=== PATIENT | female | born 1975 | race Caucasian/White ===

== ENCOUNTER → 2019-03-03 12:59 | Outpatient (CLI) | payer MEDICARE, MEDICAID, SELFPAY ==
--- NOTE | 2019-03-03 | DI.ECHO.S_ITS ---
[facility]---------+ [facility] +---------+ : : [address] : [address] : : : : [id number] : : : : Phone: [phone]+ Echocardiogram Report + + :Name: JOSE SETH Study Date: 03/03/2019 Height: 63 in : :[facility] Weight: 141 lb : : Gender: Female BSA: 1.7 m2 : :: 1975 Age: 43 yrs BP: 122/82 mmHg: :Reason For Study: CAD : : Performed By: [facility] Staff : :Referring: MARK JARQUNI : + + Interpretation Summary Left ventricular systolic function is mildly reduced with the ejection fraction is estimated to be 40-45% with severe hypokinesis of the inferior and inferoposterior wall, extending into the distal inferior septum. There is mild concentric left ventricular hypertrophy. The right ventricle is normal in size and function. Pulmonary artery pressures cannot be estimated because of the lack of a measurable TR jet velocity but the IVC suggests a CVP of around 3 mmHg. The left atrium is borderline dilated. There is no significant valvular heart disease. Procedure: A two-dimensional transthoracic echocardiogram with color flow and Doppler was performed. The study quality was technically adequate. A contrast injection of Definity was performed to improve assessment of LV function. There is no prior echocardiogram noted for this patient. The patient was in normal sinus rhythm during the exam. Left Ventricle: The left ventricle is normal in size. There is mild concentric left ventricular hypertrophy. Left ventricular systolic function is mildly reduced. The ejection fraction is estimated to be 40-45%. There is severe hypokinesis of the inferior and inferoposterior wall, extending into the distal inferior septum. Diastolic function could not be accurately assessed due to contradictory data. Right Ventricle: The right ventricle is normal in size and function. Atria: The left atrium is borderline dilated. Right atrial size is normal. The interatrial septum is intact with no evidence for an atrial septal defect. Mitral Valve: The mitral valve leaflets appear mildly thickened, but open well. There is trace mitral regurgitation. Aortic Valve: The aortic valve is trileaflet. The aortic valve is slightly calcified. The aortic valve opens well. There is trace aortic regurgitation. Tricuspid Valve: The tricuspid valve is normal in structure and function. There is trace tricuspid regurgitation. Pulmonary artery pressures cannot be estimated because of the lack of a measurable TR jet velocity but the IVC suggests a CVP of around 3 mmHg. Pulmonic Valve: The pulmonic valve is not well visualized. There is trace pulmonic regurgitation. There is no significant valvular heart disease. Great Vessels: The aortic root is normal size. The dimensions of the ascending aorta are normal. The pulmonary artery is normal size. The IVC is of normal diameter and collapses greater than 50% with a sniff. This suggests a low right atrial pressure of 3 mm Hg. Pericardium/ Pleura There is no pericardial effusion. There is no pleural effusion. MMode/2D Measurements & Calculations LVIDd: 4.9 cm LVOT diam: 2.0 cm LVIDs: 4.1 cm Ao root diam: 2.5 cm FS: 17.5 % Aortic Jxn: 2.2 cm EPSS: 1.5 cm IVSd: 1.2 cm LVPWd: 1.2 cm LV fay. diameter/BSA (cm/m^2): 2.9 LV sys. diameter/BSA (cm/m^2): 2.4 LA A2 area: 15.2 cm2 RA long axis: 3.5 cm LA A4 area: 19.8 cm2 RA area: 9.6 cm2 LA length (vol): 4.6 cm RA vol: 22.2 ml LA vol: 56.2 ml RA : 13.3 ml/m2 LA vol index: 33.7 ml/m2 TAPSE: 2.0 cm Doppler Measurements & Calculations Ao V2 max: 152.3 cm/sec LVOT Max Rishi: 96.1 cm/sec Ao V2 mean: 108.2 cm/sec LV V1 max P.7 mmHg Ao max P.3 mmHg LV V1 VTI: 22.6 cm Ao mean P.3 mmHg ROSALIE(I,D): 2.3 cm2 Ao V2 VTI: 31.2 cm ROSALIE(V,D): 2.0 cm2 sev ratio: 0.73 ROSALIE indexed to BSA (cm^2/m^2): 1.4 MV E max rishi: 100.0 cm/sec PA V2 max: 107.9 cm/sec MV A max rishi: 98.2 cm/sec PA V2 mean: 80.1 cm/sec MV E/A: 1.0 PA mean P.9 mmHg Med Peak E' Rishi: 5.5 cm/sec PA Accel Time: 0.12 sec E/E' med: 18.3 Lat Peak E' Rishi: 7.1 cm/sec E/E' lat: 14.0 E/e' average: 16.1 MV dec time: 0.20 sec SV(LVOT): 72.0 ml Reading Physician:ADELSO
== END ==
PROVIDERS: PCP Internal Medicine; Visit Provider Internal Medicine
DX: I25.10 Atherosclerotic heart disease of native coronary artery without angina pectoris (principal)
CPT/HCPCS: 93306

== ENCOUNTER → 2020-02-22 19:15 | Outpatient (ROUT) | payer MEDICARE, MEDICAID, SELFPAY ==
[2020-02-22 19:59] LABS: Aspartate Aminotransferase 19 IU/L (14-36); BUN Creatinine Ratio 28.4 (6-22); Blood Urea Nitrogen 23 mg/dL (7-17); Calcium 9.2 mg/dL (8.4-10.2); Carbon Dioxide 31 mmol/L (22-32); Chloride 100 mmol/L (98-107); Cholesterol 150 mg/dL (140-199); Estimated Glomerular Filt Rate > 60.0 mL/min (>60); Glucose 222 mg/dL (70-100); HDL Cholesterol 42 mg/dL (40-60); HEMOLYSIS < 15 (0-50); LDL Cholesterol Calculated 29 mg/dL (<100); Potassium 4.5 mmol/L (3.4-5.1); Sodium 133 mmol/L (137-145); Triglycerides 396 mg/dL (35-150)
== END ==
PROVIDERS: PCP Internal Medicine; Visit Provider Internal Medicine
DX: R60.9 Edema, unspecified (principal); E78.2 Mixed hyperlipidemia
CPT/HCPCS: 80048; 80061; 84450